=== PATIENT | female | born 1950 | race Caucasian/White ===

== ENCOUNTER 2020-01-30 19:40 | Inpatient (IN) | payer OTHER, MEDICAID, SELFPAY ==
[~2020-01-30] VITALS: Ht 162.6 cm; Wt 50.8 kg
--- NOTE | 2020-01-31 08:00 | NUR ---
AM ROUNDS: PATIENT AWAKE ON THE BED.ON CONTACT AIRBORNE,DROPLET PRECAUTION RENDERED. CALL LIGHT WITH IN REACH. BED LOCKED AT LOWEST POSITION. BED ALARM ON. NO ACUTE DISTRESS.
--- NOTE | 2020-01-31 09:05 | NUR ---
PAGED PAGED ANN BROWN AT [phone] SPOKE WITH HODA.
--- NOTE | 2020-01-31 09:10 | NUR ---
CALLED BACK: SPOKE WITH DR LYNNE AND RELAYED RAPID COVID POSITIVE RESULTS AND CAN HAVE REGULAR DIET.PT ALREADY ON CONTACT AIRBORNE ,DROPLET ISOLATION.
[2020-01-31 09:30] VITALS: BP_SYST 98
[2020-01-31 10:50] LABS: HEMATOCRIT 36.3 % (36-48); HEMOGLOBIN 11.9 g/dL (12.0-16.0); WHITE BLOOD COUNT (AUTO) 3.4 K/uL (4.8-10.8)
[2020-01-31 10:51] LABS: BASOPHILS % (AUTO) 0.3 % (0.0-2.0); EOSINOPHILS % (AUTO) 0.7 % (0.0-4.0); MEAN CORPUSCULAR HEMOGLOBIN 29 pg (27-31); MEAN CORPUSCULAR HGB CONC 33 % (32-36); MEAN CORPUSCULAR VOLUME 88 fL (79.0-98.0); MONOCYTES % (AUTO) 17.9 % (1.7-9.3); NEUTROPHILS % (AUTO) 50.1 % (40.0-70.0); PLATELET COUNT (AUTO) 172 K/uL (130-430); RED CELL DISTRIBUTION WIDTH 14.3 % (9.0-15.0)
[2020-01-31 10:52] LABS: MONOCYTES # (AUTO) 0.6 K/uL (0.0-1.0); NEUTROPHILS # (AUTO) 1.7 K/uL (1.8-7.7)
[2020-01-31 10:54] LABS: INR 0.9 (0.8-1.2); PROTHROMBIN TIME 9.3 SECS (9.5-12.5)
[2020-01-31 10:58] LABS: CLARITY/URINE CLEAR (CLEAR); COLOR,URINE YELLOW (YELLOW); GLUCOSE,URINE NEGATIVE (NEGATIVE); KETONES,URINE NEGATIVE (NEGATIVE); PH,URINE 6.5 (5.0-8.0); PROTEIN URINE NEGATIVE (NEGATIVE)
[2020-01-31 10:59] LABS: BILIRUBIN,URINE NEGATIVE (NEGATIVE); BLOOD, URINE TRACE (NEGATIVE); LEUKOCYTE ESTERASE ,URINE 2+ (NEGATIVE); NITRITE, URINE NEGATIVE (NEGATIVE); UROBILINOGEN,URINE 0.2 (0.2-1.0)
[2020-01-31 11:02] LABS: BACTERIA,URINE MANY /HPF (None Seen); WBC,URINE 20-50 /HPF (0-3)
[2020-01-31 11:15] LABS: POTASSIUM 4.1 mmol/L (3.5-5.1)
[2020-01-31 11:16] LABS: CALCIUM 8.4 mg/dL (8.4-11.0); CREATININE 0.5 mg/dL (0.55-1.30); TOTAL BILIRUBIN 0.4 mg/dL (0.0-1.0)
[2020-01-31 11:18] LABS: BASOPHILS % (AUTO) 0.5 % (0.0-2.0); EOSINOPHILS % (AUTO) 0.8 % (0.0-4.0); HEMATOCRIT 37.4 % (36-48); HEMOGLOBIN 12.3 g/dL (12.0-16.0); LYMPHOCYTES # (AUTO) 1.1 K/uL (1.0-5.5); MEAN CORPUSCULAR HEMOGLOBIN 29 pg (27-31); MEAN CORPUSCULAR HGB CONC 33 % (32-36); MEAN CORPUSCULAR VOLUME 89 fL (79.0-98.0); MONOCYTES # (AUTO) 0.4 K/uL (0.0-1.0); MONOCYTES % (AUTO) 12.9 % (1.7-9.3); NEUTROPHILS # (AUTO) 1.8 K/uL (1.8-7.7); NEUTROPHILS % (AUTO) 53.8 % (40.0-70.0); PLATELET COUNT (AUTO) 182 K/uL (130-430); RED BLOOD CELL COUNT(AUTO) 4.22 MIL/uL (4.2-6.2); RED CELL DISTRIBUTION WIDTH 14.5 % (9.0-15.0); WHITE BLOOD COUNT (AUTO) 3.4 K/uL (4.8-10.8)
[2020-01-31 11:27] LABS: CALCIUM 8.3 mg/dL (8.4-11.0); CREATININE 0.47 mg/dL (0.55-1.30); POTASSIUM 3.6 mmol/L (3.5-5.1)
[2020-01-31 11:33] LABS: ALBUMIN 2.9 g/dL (3.4-4.8); TOTAL BILIRUBIN 0.3 mg/dL (0.0-1.0)
[2020-01-31 12:00] VITALS: BP_SYST 98
--- NOTE | 2020-01-31 12:20 | NUR ---
LUNCH: CLINICAL OFFICE TECHNICIAN SITUATED THE PATIENT AND SERVE LUNCH TRAY.STABLE.
--- NOTE | 2020-01-31 15:44 | NUR ---
SEE DOWNTIME CHARTING
[2020-01-31 16:00] VITALS: BP_SYST 115
--- NOTE | 2020-01-31 16:30 | NUR ---
RN ROUNDS: SLEEPING DURING ROUNDS. NO ACUTE DISTRESS.
--- NOTE | 2020-01-31 19:25 | NUR ---
END OF SHIFT: PATIENT RESTING. MAINTAINED ON CONTACT AIRBORNE AND DROPLET PRECAUTION. SAFETY MEASURES RENDERED. NOT IN ANY DISTRESS.
--- NOTE | 2020-01-31 19:30 | NUR ---
Initial notes: Received report from enzo BROUSSARD. Patient is in bed, resting. No acute distress. Even, nonlabored respirations on room air. IV site is patent and intact, saline locked. Bed is locked at lowest position. Side rails up. Bed alarm on. Call light is with patient. Covid, safety, and fall precautions in place. Addendum: 02/01/20 at 0056 by Malina Theodore RN Will continue with plan of care.
[2020-01-31 20:00] VITALS: BP_SYST 119
--- NOTE | 2020-01-31 21:50 | NUR ---
Rounds: Patient is in bed, resting. No signs of acute distress. Breathing is even, nonlabored. Covid, safety, and fall precautions in place. Will continue monitoring.
--- NOTE | 2020-01-31 23:55 | NUR ---
Rounds: Patient is resting in bed. No s/s of acute distress. Respirations are even and unlabored on room air. Call light is with patient. Covid, safety, and fall precautions in place. Will continue monitoring patient.
[2020-02-01] VITALS: BP_SYST 119
--- NOTE | 2020-02-01 02:00 | NUR ---
Rounds: Patient is sleeping in bed. No s/s of acute distress. Even, nonlabored breathing on room air. Call light is with patient. Covid, safety, and fall precautions in place. Will continue to monitor.
--- NOTE | 2020-02-01 04:25 | NUR ---
Rounds: Patient is in bed, resting. No acute distress. Breathing is even and nonlabored on room air. Call light is with patient. Covid, safety, and fall precautions in place. Will continue to monitor.
--- NOTE | 2020-02-01 06:41 | NUR ---
Closing notes: Patient is in bed, resting. No acute distress. Even, nonlabored breathing on room air. IV site is patent and intact. All needs met. Bed is locked at lowest position. Side rails up. Bed alarm on. Call light is with patient. Covid, safety, and fall precautions in place. Will endorse to dayshift RN.
[2020-02-01 08:10] VITALS: BP_SYST 98
--- NOTE | 2020-02-01 08:10 | NUR ---
INITIAL ROUNDS Received pt AAOx3, no s/s resp distress, no c/o pain or discomfort. Pt on Airborne and droplet isolation precautions. Plan of care for the day reviewed with pt-pt verbalized her understanding. Pain management, disease process, skin and safety discussed-teach back done. Side rails up x3, bed alarm on for safety Call light within reach.
--- NOTE | 2020-02-01 09:18 | NUR ---
SS notes: LOAN INTERVIEWER [employer] was referred by CM to see patient for psychiatric issues. LOAN INTERVIEWER [employer] phoned patient @ [phone], no answer. Information obtained from [facility] chart. Pt is a 69 y/o female from [facility]. Pt was found wandering at [facility] claiming that she is meeting Aba Siu. Patient was brought to [facility] for DTS. Pt is alert and confused. Pt is cooperative but anxious and guarded. Pt is delusional. Pt denies history of psychiatric admissions. Pt denies any alcohol or drug use. Pt stated she has 2 daughters, one living in [facility]. Pt is independent and able to ambulate with assistance. No NOK or PTN provided. SS will follow up. Addendum: 02/01/20 at 1241 by Mary HOLT LOAN INTERVIEWER [employer] attempted to phone pt @ [phone], no answer. Bedside RN is also unavailable.
--- NOTE | 2020-02-01 09:30 | NUR ---
Nutrition Update Harpreet Scale 18 noted. Pt admitted for COVID. Diet: regular BMI: N/A RD to follow per nutrition care standards.
[2020-02-01] MEDS ORDERED: ZOLPIDEM TARTRATE 5 MG TABLET PO PRN (12:15)
[2020-02-01] MEDS ORDERED: ALBUTEROL SULFATE 0.083% 2.5 MG/3 ML VIAL.NEB INH PRN (12:15)
[2020-02-01] MEDS ORDERED: AZITHROMYCIN 500 MG in NS 250 ML IV SCH (12:15)
[2020-02-01] MEDS ORDERED: cefTRIAXone 1 GM in D5W 50 ML IV SCH (12:15)
[2020-02-01] MEDS ORDERED: IPRATROPIUM BROM 0.5 MG/2.5 ML VIAL.NEB (ATROVENT) INH PRN (12:15)
[2020-02-01] MEDS ORDERED: MILK OF MAGNESIA 30 ML UDC PO PRN (12:15)
[2020-02-01] MEDS ORDERED: LORazepam 1 MG TABLET PO PRN (12:15)
[2020-02-01] MEDS ORDERED: ACETAMINOPHEN 325 MG TABLET PO PRN (12:15)
--- NOTE | 2020-02-01 12:41 | NUR ---
CONSULTATION PAGED/CALLED Reason for Consultation: [] COVID Person Who was Notified: [] CORBY Consulting Physician: [] DR THORPE Bag Checker Specialty: [] ID Ordering Physician: [] DR LYNNE
--- NOTE | 2020-02-01 12:42 | NUR ---
CONSULTATION PAGED/CALLED Reason for Consultation: [] COVID Person Who was Notified: [] PAGED ANNABEL WHALEY FORESTRY ENGINEER DIRECTLY (DR TREJO) Consulting Physician: [] DR TREJO Tracer Bullet Section Supervisor Specialty: [] ANNABEL Ordering Physician: [] DR LYNNE
[2020-02-01 13:59] VITALS: BP_SYST 98
[2020-02-01 16:05] VITALS: BP_SYST 100
[2020-02-01] MEDS: ALBUTEROL SULFATE 0.083% 2.5 MG/3 ML VIAL.NEB INH SCH (19:00)
[2020-02-01] MEDS: IPRATROPIUM BROM 0.5 MG/2.5 ML VIAL.NEB (ATROVENT) INH SCH (19:00)
--- NOTE | 2020-02-01 19:10 | NUR ---
CLOSING NOTE Pt sitting up in bed with no s/s resp distress, no c/o pain or discomfort. Pt mostly focused on her belongings-stated she lost her pants in [place]. All precautions remain in place. Call light within reach.
--- NOTE | 2020-02-01 19:30 | NUR ---
Initial notes: Received report from enzo RN. Patient is in bed on her phone. No acute distress. Even, nonlabored respirations on room air. IV site is patent and intact, saline locked. Bed is locked at lowest position. Side rails up x3. Bed alarm on. Call light is with patient. Covid, safety, and fall precautions in place. Will continue with plan of care.
[2020-02-01 20:00] VITALS: BP_SYST 108
--- NOTE | 2020-02-01 21:40 | NUR ---
Rounds: Patient is in bed, resting. No s/s of acute distress. Breathing is even and nonlabored. Call light is with patient. Covid, safety, and fall precautions in place. Will continue to monitor.
--- NOTE | 2020-02-01 23:45 | NUR ---
Rounds: Patient is in bed, sleeping. No signs of acute distress. Respirations are even and nonlabored. Call light is with patient. Covid, safety, and fall precautions in place. Will continue to monitor.
[2020-02-02] VITALS: BP_SYST 99
[2020-02-02] MEDS: IPRATROPIUM BROM 0.5 MG/2.5 ML VIAL.NEB (ATROVENT) INH SCH ×4 (01:00→19:00)
[2020-02-02] MEDS: ALBUTEROL SULFATE 0.083% 2.5 MG/3 ML VIAL.NEB INH SCH ×2 (01:00→07:00)
--- NOTE | 2020-02-02 01:45 | NUR ---
Rounds: Patient is sleeping in bed. No acute distress. Even and unlabored breathing on room air. Call light is with patient. Covid, safety, and fall precautions in place. Will continue monitoring.
--- NOTE | 2020-02-02 03:43 | NUR ---
Rounds: Patient is resting in bed. Pericare performed at this time. No acute distress. Breathing is even and unlabored on room air. Call light is with patient. Covid, safety, and fall precautions in place. Will continue monitoring
--- NOTE | 2020-02-02 05:30 | NUR ---
Rounds: Patient is resting in bed. No acute distress. Even, nonlabored on room air. Call light is with patient. Covid, safety, and fall in place. Will continue to monitor.
--- NOTE | 2020-02-02 06:47 | NUR ---
Closing notes: Patient is in bed, on the phone. No acute distress. Even, nonlabored breathing on room air. IV site is patent and intact. All needs met. Bed is locked at lowest position. Side rails up. Bed alarm on. Call light is with patient. Covid, safety, and fall precautions in place. Will endorse to dayshift RN.
[2020-02-02 08:30] VITALS: BP_SYST 95
--- NOTE | 2020-02-02 08:59 | NUR ---
pt refused iv abx and po meds.
[2020-02-02] MEDS: cefTRIAXone 1 GM in D5W 50 ML IV SCH ×2 (09:00→18:00)
[2020-02-02] MEDS ORDERED: MAG-AL HYDROX/SIMETH 30 ML UDC PO PRN (09:00)
[2020-02-02] MEDS: AZITHROMYCIN 500 MG in NS 250 ML IV SCH ×2 (09:00→18:00)
--- NOTE | 2020-02-02 10:15 | NUR ---
offered po med and iv meds again. pt refused again.
--- NOTE | 2020-02-02 10:31 | NUR ---
DR LYNNE HERE, INFORMED MD THAT PT REFUSED IV AND PO MEDICATION, NEW ORDERS GIVEN.
--- NOTE | 2020-02-02 11:06 | NUR ---
CONSULTATION PAGED/CALLED Reason for Consultation: PSYCHOSIS Person Who was Notified: MCHAIL Consulting Physician: CATA Ecommerce Merchandising Manager Specialty: PSYCH Ordering Physician: MAGED
[2020-02-02 12:42] VITALS: BP_SYST 90
--- NOTE | 2020-02-02 12:43 | NUR ---
PT AGAIN REFUSED TO HAVE ANOTHER IV ACCESS STARTED AND IV ABX GIVEN TO HER.
[2020-02-02] MEDS: ALBUTEROL MDI INHALATION 8 GM INH INH SCH ×2 (13:00→19:00)
--- NOTE | 2020-02-02 15:35 | NUR ---
PAGED DR RIBEIRO FOR CRITICAL MICRO RESULT.
--- NOTE | 2020-02-02 16:02 | NUR ---
ASSISTED PT ON BEDSIDE COMMODE. EXPLAINED TO PT THAT SHE HAS INFECTION IN THE URINE, THAT IS WHY SHE NEEDS THE ANTIBIOTICS, PT STATED SHE WILL TAKE IT AFTER SHE IS DONE WITH THE COMMODE. WILL CHECK PT AGAIN.
[2020-02-02 16:08] VITALS: BP_SYST 99
--- NOTE | 2020-02-02 16:23 | NUR ---
DR PEREZ HERE, INFORMED MD OF THE CONSULT FOR THIS PT.
--- NOTE | 2020-02-02 17:11 | NUR ---
FAMILY OF PATIENT: MARIA M KAUFFMAN [phone] ([place], [place]) SON IN [place]. PT HAS TWIN SISTER , BRANDT MERRITT IN [place], SISTER MARIA M HAS NO PHONE NUMBER FOR [place] ADDRESS. PT ALSO [place], MARCEL PERESBACK ADDRESS [address] [place] [address] # [facility] [address], [address] [address] [facility] [place] [address]. Addendum: 02/02/20 at 1852 by George Guido RN Maria M Kauffman is pt's sister.
--- NOTE | 2020-02-02 18:08 | NUR ---
PT IV ANTIBIOTICS GIVEN, PT FINALLY AGREED TO HAVE IT GI MECCA TO HER AFTER EXPLAINING TO PT THAT SHE HAS URINARY INFECTION.
--- NOTE | 2020-02-02 19:20 | NUR ---
OPENING NOTE PATIENT AOX3. NO SIGNS OF RESPIRATORY DISTRESS NOTED. DENIES PAIN AND DISCOMFORT. ON ROOM AIR, TOLERATING WELL. IV ANTIBIOTIC INFUSING AT THIS TIME. CALL LIGHT WITHIN REACH, PATIENT WAS EDUCATED TO USE CALL LIGHT WHEN ASSISTANCE IS NEEDED. PATIENT ABLE TO VERBALIZED UNDERSTANDING. BED LOCKED AND IN LOWEST POSITION. SAFETY PRECAUTIONS IN PLACE. WILL CONTINUE TO MONITOR PATIENT.
[2020-02-02 20:00] VITALS: BP_SYST 98
--- NOTE | 2020-02-02 21:22 | NUR ---
MED PASS/ NICOLE CARE DUE MEDICATION GIVEN AT THIS TIME. PATIENT WAS EDUCATED ON MEDICATION THAT WAS GIVEN FOR ITS PURPOSE, SIDE EFFECT AND BENEFITS. PATIENT ABLE TO VERBALIZED UNDERSTANDING. NICOLE CARE DONE WELL, PATIENT TOLERATE WELL. BED LOCKED AND IN LOWEST POSITION. SAFETY AND ISOLATION PRECAUTIONS IN PLACE. WILL CONTINUE TO MONITOR PATIENT.
--- NOTE | 2020-02-02 23:56 | NUR ---
VITAL SIGNS VITAL SIGNS TAKEN AND WILL BE RECORDED. NO SIGNS OF RESPIRATORY DISTRESS AND DISCOMFORT NOTED. BREATHING EVEN AND UNLABORED. SAFETY PRECAUTIONS IN PLACE. NEEDS ATTENDED. WILL CONTINUE TO MONITOR PATIENT.
[2020-02-03] VITALS: BP_SYST 111
[2020-02-03] MEDS: IPRATROPIUM BROM 0.5 MG/2.5 ML VIAL.NEB (ATROVENT) INH SCH ×4 (01:00→19:00)
[2020-02-03] MEDS: ALBUTEROL MDI INHALATION 8 GM INH INH SCH ×4 (01:00→19:00)
--- NOTE | 2020-02-03 02:14 | NUR ---
RN ROUNDS PATIENT ASLEEP AT THIS TIME. NO SIGNS OF RESPIRATORY DISTRESS AND DISCOMFORT NOTED. BREATHING EVEN AND UNLABORED. SAFETY PRECAUTIONS IN PLACE. WILL CONTINUE TO MONITOR PATIENT.
--- NOTE | 2020-02-03 06:37 | NUR ---
CLOSING NOTE PATIENT SLEPT WELL THROUGHOUT THE SHIFT, NO SHORTNESS OF BREATH NOTED. AT THIS TIME, PATIENT IS RESTING IN BED, STABLE, NO SIGNS OF RESPIRATORY DISTRESS. CALL LIGHT IS WITHIN REACH. BED IS LOCKED, ALARMED, AND AT THE LOWEST LEVEL. FALL, SAFETY, AND RESPIRATORY PRECAUTIONS IN PLACE. ALL NEEDS MET THROUGHOUT THE SHIFT. WILL CONTINUE TO MONITOR UNTIL SHIFT REPORT IS GIVEN AT BEDSIDE TO AM NURSE.
[2020-02-03 08:30] VITALS: BP_SYST 93
--- NOTE | 2020-02-03 08:30 | NUR ---
OPENING NOTES. RECEIVED PT IN BED, PT IS AAOX3, DENIES PAIN, NO SOB, NO RESP DISTRESS, NO FEVER. PT REFUSED TO TAKE THE WHOLE DOSE OF HER P.O. MED, STATED THAT SHE WANTED TO TAKE ONLY THE HALF TABLET. EDUCATED HER THAT SHE NEEDS TO TAKE THE WHOLE DOSE SO SHE CAN BENEFIT FROM IT. PT REFUSED. WILL TRY AGAIN LATER.
[2020-02-03] MEDS: cefTRIAXone 1 GM in D5W 50 ML IV SCH (09:43)
--- NOTE | 2020-02-03 10:00 | NUR ---
OFFERED AGAIN TO PT THE REMAINDER OF HER MED. PT AGAIN REFUSED.
[2020-02-03] MEDS: AZITHROMYCIN 500 MG in NS 250 ML IV SCH (10:29)
--- NOTE | 2020-02-03 12:30 | NUR ---
PT ASSISTED TO BS COMMODE TO SIT. PT CHUCKS CHANGED PT HAD AN INCONTINENCE.
[2020-02-03 15:58] VITALS: BP_SYST 100
--- NOTE | 2020-02-03 18:29 | NUR ---
CLOSING NOTES, PT HAS BEEN STABLE THE WHOLE SHIFT, NO FEVER, NO C/O OF PAIN. WILL ENDORSE TO NIGHT NURSE.
[2020-02-03 20:30] VITALS: BP_SYST 137
--- NOTE | 2020-02-03 20:30 | NUR ---
Opening notes Pt AAOx3, VSS, afebrile. No s/s distress noted. Pt incontinent of urine, linens changed. IV saline lock L. AC 20G no s/s infiltration. Call light within reach. Bed low, locked, siderails up x2. Covid isolation maintained. To monitor.
--- NOTE | 2020-02-04 | NUR ---
Rounds Pt asleep, easily awakens, VSS, afebrile. Call light within reach. Bed low, locked, siderails upx2. Covid isolation maintained. To monitor.
[2020-02-04 00:10] VITALS: BP_SYST 107
[2020-02-04] MEDS: ALBUTEROL MDI INHALATION 8 GM INH INH SCH ×4 (01:00→19:00)
[2020-02-04] MEDS: IPRATROPIUM BROM 0.5 MG/2.5 ML VIAL.NEB (ATROVENT) INH SCH ×4 (01:00→19:00)
--- NOTE | 2020-02-04 04:10 | NUR ---
Pericare Pt awake, incontinent of urine. Pericare provided and chucks changed. Petros heels maintained floated on pillow. Pt thankful. Call light within reach. Safety maintained. To monitor.
--- NOTE | 2020-02-04 06:10 | NUR ---
Closing notes Pt AAOx3. No s/s distress noted. Pt incontinent of urine, linens changed. IV saline lock L. AC 20G no s/s infiltration. Call light within reach. Bed low, locked, siderails up x2. Covid isolation maintained. To endorse to Am nurse.
--- NOTE | 2020-02-04 08:00 | NUR ---
Initial note: Patient is alert, oriented x4, denies any pain or discomfort. She is sitting on the commode at bedside. She wants to sit for a wile and try to have BM. Will continue monitor.
[2020-02-04 08:30] VITALS: BP_SYST 101
--- NOTE | 2020-02-04 10:00 | NUR ---
RN round: Patient is resting on bed comfortable, no sign of distress.
[2020-02-04] MEDS: cefTRIAXone 1 GM in D5W 50 ML IV SCH (10:56)
[2020-02-04] MEDS: AZITHROMYCIN 500 MG in NS 250 ML IV SCH (10:57)
--- NOTE | 2020-02-04 12:17 | NUR ---
CONSULTATION CALLED REASON FOR CONSULTATION:COVID WAS CONSULT CALLED?Y PERSON WHO WAS NOTIFIED: CONSULTING PHYSICIAN:PEREZ SAMUEL JEWEL BEARING FACER SPECIALTY:PULMONARY JEWEL BEARING FACER PHONE NUMBER:[phone] REQUESTING PHYSICIAN:ANN BROWN
[2020-02-04 12:25] VITALS: BP_SYST 109
--- NOTE | 2020-02-04 12:53 | NUR ---
Discharge Planning: DCP faxed pt referral to [facility] ([phone]) and [facility] ([phone]) DCP to follow up. Addendum: 02/04/20 at 1650 by Lydia Montelongo DP DCP followed up with [facility] ([phone]) no covid room and [facility] ([phone]) no covid room. DCP faxed pt referral to [facility] [place], [facility]. Addendum: 02/04/20 at 1654 by Lydia Montelongo DP Francisco Salgado ([phone]) Saba hunter reviewNaomi -no Gustavo medina- ([phone]) per Bibiana would like to know DC plan?, [facility]-([phone]) will accept making room changes per Loulou.
--- NOTE | 2020-02-04 13:00 | NUR ---
BM: Assist patient up to BSC. She tolerating well and has large BM x1.
[2020-02-04 16:00] VITALS: BP_SYST 95
--- NOTE | 2020-02-04 16:31 | NUR ---
RN round: Patient is resting on bed and states a female doctor told her yesterday that she can go home. Explain to her that she still need to be in Isolation room, and there is no any discharge order yet. Also tell her will F/U with MD tomorrow about DC plan.
--- NOTE | 2020-02-04 19:00 | NUR ---
Closing note: Patient is stable , no sign of distress.
[2020-02-04 20:40] VITALS: BP_SYST 104
[2020-02-04 23:30] VITALS: BP_SYST 126
[2020-02-05] MEDS: IPRATROPIUM BROM 0.5 MG/2.5 ML VIAL.NEB (ATROVENT) INH SCH (01:00)
[2020-02-05] MEDS: ALBUTEROL MDI INHALATION 8 GM INH INH SCH (01:00)
--- NOTE | 2020-02-05 08:45 | NUR ---
PT ASSISTED BEDSIDE TABLE FOR BREAKFAST, PT TOOK PO MED TODAY WITHOUT QUESTION. VITALS WNL , NO FEVER. NO PAIN. WILL CONT TO MONITOR.
[2020-02-05 09:00] VITALS: BP_SYST 98
[2020-02-05] MEDS ORDERED: ENOXAPARIN SODIUM 40 MG/0.4 ML SYRINGE SUBCUT SCH (09:30)
--- NOTE | 2020-02-05 09:40 | NUR ---
ANTIBIOTICS GIVEN, APPLIED SCD.
[2020-02-05] MEDS: cefTRIAXone 1 GM in D5W 50 ML IV SCH (09:45)
[2020-02-05] MEDS: AZITHROMYCIN 500 MG in NS 250 ML IV SCH (09:45)
--- NOTE | 2020-02-05 10:30 | NUR ---
Discharge Planning: DCP spoke to Loulou at [facility]-([phone]) will accept to Rm 6A after 3:00pm. Addendum: 02/05/20 at 1227 by Lydia Montelongo DP DCP arrange transportation on Will Call with [facility] ([phone]) DCP made nurse aware a DC order is needed.
[2020-02-05 11:21] VITALS: BP_SYST 106
--- NOTE | 2020-02-05 11:26 | NUR ---
PER DCP , DR LYNNE WILL BE HERE TO ASSESS PT FOR DC.
[2020-02-05 14:02] VITALS: BP_SYST 106
--- NOTE | 2020-02-05 15:00 | NUR ---
report given to nurse [facility].
--- NOTE | 2020-02-05 16:30 | NUR ---
D/C Patient Patient given medication reconciliation form and D/C instructions. Exit Care provided. Patient verbalized understanding. MD discussed with patient the results and treatment provided. Ambulatory with steady gait for discharge to home. Patient in stable condition, ID band removed. IV catheter removed, intact and dressing applied, no active bleeding. no Rx of given. Patient educated on pain management. All belongings sent with patient.
== END 2020-02-05 15:00 | DRG 177 ==
LOC: SED 19:40 → EDUNIT# 01-31 01:00 → SMU 01-31 01:00
PROVIDERS: ADMIT Internal Medicine Hospice and Palliative Medicine; ATTEND Internal Medicine Hospice and Palliative Medicine
DX: U07.1 COVID-19 (principal); G93.41 Metabolic encephalopathy; N39.0 Urinary tract infection, site not specified; Z16.24 Resistance to multiple antibiotics; R74.01 Elevation of levels of liver transaminase levels; F29 Unspecified psychosis not due to a substance or known physiological condition; M19.90 Unspecified osteoarthritis, unspecified site; B96.20 Unspecified Escherichia coli [E. coli] as the cause of diseases classified elsewhere; Z91.19 Patient's noncompliance with other medical treatment and regimen; Z91.83 Wandering in diseases classified elsewhere
CPT/HCPCS: 36415; 71045; 80053; 81000-TC; 83605; 83880; 84484; 85025; 85379; 85610-TC; 85730-TC; 87040-TC; 87081; 87086; 93005; 99285; J0456; J0696; J1650; J7050; J7060; U0003